=== PATIENT | female | born 2000 | race Caucasian/White ===

== ENCOUNTER 2018-01-04 16:40 | Emergency (ER) | payer OTHER ==
[~2018-01-04] VITALS: Ht 165.1 cm; Wt 85.7 kg
[2018-01-04 16:42] VITALS: Ht 165.1 cm; Wt 85.7 kg
[2018-01-04 18:36] VITALS: BP 103/57
== END 2018-01-04 18:36 | disposition home or self-care (01) ==
LOC: ED 16:40
DX: S80.212A Abrasion, left knee, initial encounter (principal); S80.211A Abrasion, right knee, initial encounter; V43.52XA Car driver injured in collision with other type car in traffic accident, initial encounter; Y93.I9 Activity, other involving external motion; Y92.89 Other specified places as the place of occurrence of the external cause; Y99.8 Other external cause status